=== PATIENT | male | born 1950 | race Hispanic/Latino ===

== ENCOUNTER → 2019-09-17 | Outpatient (CLI) | payer OTHER | END | disposition home or self-care (01) | LOC: RAH 12:01 | PROVIDERS: ATTEND Physical Medicine & Rehabilitation | DX: M47.16 Other spondylosis with myelopathy, lumbar region (principal); M48.061 Spinal stenosis, lumbar region without neurogenic claudication; G95.9 Disease of spinal cord, unspecified | CPT/HCPCS: 72141; 72148 ==

== ENCOUNTER 2020-01-13 05:40 | Observation (INO) | payer OTHER ==
[2020-01-10 11:25] LABS: BASOPHILS % (AUTO) 0.2 % (0.0-5.0); EOSINOPHILS % (AUTO) 1.4 % (0.0-8.0); HEMATOCRIT 42.3 % (42-54); LYMPHOCYTES % (AUTO) 36.2 % (21.0-51.0); MEAN CORPUSCULAR HEMOGLOBIN 31.4 pg (27.0-33.0); MEAN CORPUSCULAR HGB CONC 32.6 g/dL (32.0-36.0); MEAN CORPUSCULAR VOLUME 96.4 fL (79-99); NEUTROPHILS % (AUTO) 53.8 % (40.0-77.0); PLATELET COUNT (AUTO) 217 K/uL (130-400); RED BLOOD CELL COUNT(AUTO) 4.39 MIL/uL (4.50-6.20); RED CELL DISTRIBUTION WIDTH 13.6 % (11.0-15.5); WHITE BLOOD COUNT (AUTO) 5.1 K/uL (4.8-10.8)
[2020-01-10 11:27] VITALS: BP 123/74
[2020-01-10 11:34] LABS: CREATININE 0.9 mg/dL (0.5-1.5); POTASSIUM 3.9 mmol/L (3.5-5.1)
[~2020-01-13] VITALS: Ht 162.6 cm; Wt 90.7 kg
[2020-01-13] VITALS (21 sets, daily range): BP systolic 88–145; BP diastolic 51–94
[~2020-01-13 05:40] MED LIST: ASPI-1005 PO; LOSA100T58 PO; NORT25CA3 PO; PRAV40TA3 PO
[2020-01-13] MEDS: CEFAZOLIN SODIUM 1 GM VIAL IVP SCH ×2 (06:00→08:00)
[2020-01-13] MEDS ORDERED: LACTATED RINGERS 1000ML 1,000 ML IV ONE (06:49)
[2020-01-13] MEDS ORDERED: PROPOFOL 10 MG/ML 20ML VIAL IV ONE (07:10)
[2020-01-13] MEDS ORDERED: ROCURONIUM 10MG/1ML SYR 10 MG/ML ML ONE ×2 (07:10→07:55)
[2020-01-13] MEDS ORDERED: MIDAZOLAM HCL 1 MG/ML 2ML VIAL ONE (07:10)
[2020-01-13] MEDS ORDERED: LIDOCAINE PF 2% 5ML ABBOJECT ONE (07:10)
[2020-01-13] MEDS ORDERED: THROMBIN-JMI 20000 UNIT KIT TP ONE (07:11)
[2020-01-13] MEDS ORDERED: BUPIVACAINE/EPI/PF 0.25% 30ML VIAL IJ ONE (07:11)
[2020-01-13] MEDS ORDERED: CEFAZOLIN SODIUM 1 GM VIAL ONE (07:11)
[2020-01-13] MEDS ORDERED: FENTANYL CITRATE PF 50 MCG/1 ML 5ML AMP IV ONE (07:11)
[2020-01-13] MEDS ORDERED: DURAMORPH PF1 MG/ML 10ML AMP IV ONE (07:11)
[2020-01-13] MEDS ORDERED: EPHEDRINE SULFATE 50 MG/ML AMPULE ONE (07:38)
[2020-01-13] MEDS ORDERED: DEXAMETHASONE SOD PHOSPHATE 10MG/ML 1ML VIAL ONE (07:40)
[2020-01-13] MEDS ORDERED: PHENYLEPHRINE HCL 10 MG/ML 1ML VIAL IV ONE (07:52)
[2020-01-13] MEDS ORDERED: GLYCOPYRROLATE 1 MG/5 ML SYRINGE ONE (10:25)
[2020-01-13] MEDS ORDERED: NEOSTIGMINE 5MG/5ML SYR IV ONE (10:26)
[2020-01-13] MEDS ORDERED: ONDANSETRON HCL 4 MG/2 ML VIAL ONE (10:26)
[2020-01-13] MEDS ORDERED: KETOROLAC TROMETHAMINE 30MG/ML ONE (10:27)
[2020-01-13] MEDS ORDERED: MEPERIDINE-PF 25 MG/ML SYG ONE ×3 (10:35→11:26)
[2020-01-13] MEDS ORDERED: PROMETHAZINE HCL 25 MG/ML 1ML AMPULE IM PRN (11:00)
[2020-01-13] MEDS ORDERED: MORPHINE SULFATE 2 MG/ML 1ML SYG IVP PRN (11:00)
[2020-01-13] MEDS: DEXAMETHASONE SOD PHOSPHATE 4 MG/ML 1ML VIAL IVP SCH ×3 (11:00→23:23)
[2020-01-13] MEDS ORDERED: SODIUM CHLORIDE 0.9% 10 ML VIAL IVP PRN (11:00)
[2020-01-13] MEDS ORDERED: CEFAZOLIN SODIUM 1 GM VIAL IVP SCH (15:00)
[2020-01-13] MEDS: LACTATED RINGERS 1000ML 1,000 ML IV SCH ×2 (15:27→23:20)
[2020-01-13] MEDS: HYDROCODONE/ACETAMINOPHEN 5/325 MG TAB PO PRN ×2 (15:41→23:23)
--- NOTE | 2020-01-13 20:00 | NUR ---
ACTIVITY ATTEMPT TO AMBULATE WITH ASSISTANCE OF BEAD STRINGER AND NURSE USING GAIT BELT, PATIENT WITH HISTORY OF NUMBNESS TO UPPER AND LOWER EXTREMITIES MORE PRONOUNCED ON RIGHT SIDE, AMBULATED TO HALLWAY APPROXIMATE 20 FEET , PATIENT VERY UNSTEADY T
--- NOTE | 2020-01-13 20:00 | NUR ---
ACTIVITY AMBULATING IN THE HALLWAY, VERY UNSTEADY, ASSIST BACK TO BED
[2020-01-13] MEDS ORDERED: ATORVASTATIN CALCIUM 10 MG TABLET PO SCH (21:00)
[2020-01-13] MEDS ORDERED: **HM**NORTRIPTYLINE HCL 25 MG CAPSULE PO SCH (21:00)
--- NOTE | 2020-01-13 21:05 | NUR ---
ACTIVITY+ AMBULATED IN THE ROOM TO DOOR WAY LEADING TO HALLWAY, PATIENT CONTINUE VERY UNSTEADY AND NUMBNESS TO BILATERAL LOWER EXTREMITIES THAT WAS PRESENT BEFORE SURGERY, PATIENT FEELING VERY UNSAFE , BACK TO BED , F/C TO GRAVITY DRAINAGE WITH CLEAR YELLOW URINE, TOLERATING PO FLUIDS AT THIS TIME, DRESSING LUMBAR AREA D/I, J/P COMPRESSED WITH SMALL AMOUNT SEROS SANGUIENOUS DRAINAGE, TEACH PATIENT PLAN OF CARE AND EXPECTED OUTCOME, PATIENT VERBALIZES UNDERSTANDING VIA TEACH BACK, CALL ARELLANO AT REACH, BLE SCDS IN PLACE
[2020-01-14 04:00] VITALS: BP 129/70
[2020-01-14] MEDS: DEXAMETHASONE SOD PHOSPHATE 4 MG/ML 1ML VIAL IVP SCH (04:34)
--- NOTE | 2020-01-14 06:10 | NUR ---
F/C F/C DISCONTINUED , TOLERATRED WELL, DTV, INSTRUCT PATIENT TO CALL NURSE WHEN URGE TO VOID, PATIENT VERBALIZES UNDERSTANDING VIA TEACH BACK, CALL ARELLANO AT REACH
[2020-01-14 08:00] VITALS: BP 110/65
[2020-01-14] MEDS ORDERED: LOSARTAN 100 MG TABLET PO SCH (09:00)
[2020-01-14] MEDS ORDERED: ASPIRIN 81MG TAB.CHEW PO SCH (09:00)
--- NOTE | 2020-01-14 09:05 | NUR ---
CM NOTE PATIENT IN OBS STATUS, SCHEDULED PROCEDURE, NO CONCERNS OR TRIGGERS, DETAILED CM ASSESSMENT DEFERRED AT THIS TIME Addendum: 01/16/20 at 0906 by APRIL HENSLEY RN CM Amended: Links added.
[2020-01-14] MEDS: HYDROCODONE/ACETAMINOPHEN 5/325 MG TAB PO PRN (09:53)
[2020-01-14 11:00] VITALS: BP_SYST 114; BP_SYST 116; BP_DIAS 40; BP_DIAS 74
--- NOTE | 2020-01-14 12:39 | NUR ---
INCISION CARE DONE AND MYNOR DRAIN D/C PER DR SIX ORDERS. TIP OF THE MYNOR INTACT.
[2020-01-14] MEDS: LACTATED RINGERS 1000ML 1,000 ML IV SCH (13:34)
[2020-01-14 16:00] VITALS: BP 111/54
--- NOTE | 2020-01-14 16:21 | NUR ---
[id number] patient signed RUIZ Letter, I faxed RUIZ Letter to [id number] and placed in chart under consent tab
--- NOTE | 2020-01-14 17:01 | NUR ---
DISCHARGE PATIENT GIVEN DISCHARGE INSTRUCTIONS ON FOLLOW UP APPOINTMENTS WITH DR SHARMA, INCISION CARE, STAPLE REMOVER TO BE TAKEN TO F/U APPOINTMENT, ACTIVITY. PATIENT VERBALIZED UNDERSTANDING OF ALL EDUCATION GIVEN VIA TEACH BACK. STAPLE REMOVER AND REFERENCE MATERIAL PROVIDED AT DISCHARGE. REPORT GIVEN TO ALEXA FARIA LVN ON INCISION CARE, F/U APPOINTMENTS, ACTIVITY, AND DR SHARMA ORDERS. ALL QUESTIONS ANSWERED ACCORDINGLY.
== END 2020-01-14 18:28 ==
LOC: DAH 05:40 → 4AH 05:41
PROVIDERS: ADMIT Neurological Surgery; ATTEND Neurological Surgery
DX: M48.061 Spinal stenosis, lumbar region without neurogenic claudication (principal); E78.5 Hyperlipidemia, unspecified; Z86.12 Personal history of poliomyelitis
CPT/HCPCS: 36415; 63047; 63048 ×2; 72020; 80048; 85025; 96374; 96375; 96376 ×2; 97039; 97116; 97161; A4213; A4215; A4221; A4222; A4223; A4344; A4510; A4600; A4649 ×3; A4663; A6260; G0378 ×20; G8978; G8979; G8980; G8981; G8982; G8983; J0690 ×3; J1100 ×4; J1885; J2001; J2175 ×3; J2250; J2274; J2370; J2405; J2704; J2710; J3010; J3490 ×3; J7030; J7120 ×2

== ENCOUNTER → 2023-01-30 | Outpatient (CLI) | payer OTHER ==
[~2023-01-30] MED LIST changes: +GADOTERATE MEGLUMINE 10 MMOL/20 ML VIAL IV ONE
== END | disposition home or self-care (01) ==
LOC: RAH 10:55
PROVIDERS: ATTEND Family Medicine
DX: M48.061 Spinal stenosis, lumbar region without neurogenic claudication (principal); M47.816 Spondylosis without myelopathy or radiculopathy, lumbar region
CPT/HCPCS: 72158; A9575

== ENCOUNTER → 2023-05-05 | Outpatient (CLI) | payer OTHER ==
[~2023-05-05] MED LIST changes: -GADOTERATE MEGLUMINE 10 MMOL/20 ML VIAL IV ONE; -LOSA100T58 PO; +LOSA100T59 PO
[2023-05-05 12:38] LABS: CREATININE 0.7 mg/dL (0.5-1.5)
== END | disposition home or self-care (01) ==
LOC: LAB 11:41
PROVIDERS: ATTEND Neurological Surgery
DX: M47.12 Other spondylosis with myelopathy, cervical region (principal)
CPT/HCPCS: 36415; 82565; 84520

== ENCOUNTER → 2023-05-09 | Outpatient (CLI) | payer OTHER ==
[~2023-05-09] MED LIST changes: +GADOTERATE MEGLUMINE 10 MMOL/20 ML VIAL IV ONE
== END | disposition home or self-care (01) ==
LOC: RAH 08:48
PROVIDERS: ATTEND Neurological Surgery
DX: M48.02 Spinal stenosis, cervical region (principal); M47.12 Other spondylosis with myelopathy, cervical region
CPT/HCPCS: 72156; A9575